=== PATIENT | female | born 1945 | race Two or more races ===

== ENCOUNTER → 2020-10-06 | Outpatient (CLI) | payer BC ==
--- NOTE | 2020-10-06 16:34 | KCIC ---
EXAM: LUMBAR SPINE 3 VIEWS. HISTORY: Low back pain, left sacroiliac pain. COMPARISON: None. FINDINGS: Alignment is maintained. Osteopenia is at least moderate. Vertebral body heights are mainta ined, and no fractures are identified. Intervertebral disc heights are maintained. A 5.7 cm pelvic ca lcification is likely a degenerated fibroid. IMPRESSION: 1. At least moderate osteopenia. No fracture or clear degenerative change. Electronically signed by: Ganga Augustine MD (10/06/2020 4:32 PM) [id number]
== END ==
LOC: KCIC 14:10
PROVIDERS: ATTEND Family Medicine
DX: M54.5 Low back pain (principal)
CPT/HCPCS: 72100